=== PATIENT | male | born 1960 | race Caucasian/White ===

== ENCOUNTER 2020-10-17 16:06 | Emergency (ER) | payer BC ==
[~2020-10-17] VITALS: Ht 170.2 cm; Wt 107.0 kg
[2020-10-17 16:20] VITALS: BP 143/87
[2020-10-17] MEDS ORDERED: SULF1TAB48 PO (16:36)
[2020-10-17] MEDS ORDERED: CEPH500C2 PO (16:36)
--- NOTE | 2020-10-17 16:50 | NUR ---
59 years old male with lower extremities edema condition stable d/c home with instructions after care reviewed understood left er ambulatory with steady gait.
== END 2020-10-17 16:53 | disposition home or self-care (01) ==
LOC: ER 16:14
DX: L03.116 Cellulitis of left lower limb (principal); L03.115 Cellulitis of right lower limb; I10 Essential (primary) hypertension